=== PATIENT | female | born 1960 | race Caucasian/White ===

== ENCOUNTER 2017-03-10 21:58 | Emergency (ER) | payer MEDICAID ==
[~2017-03-10] VITALS: Ht 160 cm; Wt 61.5 kg
[2017-03-10 22:04] VITALS: Ht 160 cm; Wt 61.5 kg
[2017-03-10] MEDS ORDERED: ALPRAZOLAM 0.25 MG TAB PO ONE (23:30)
--- NOTE | 2017-03-10 23:55 | RADRPT ---
PROCEDURE: CHEST - 1 VIEW CLINICAL INDICATION: 57-year-old female with chest pain and palpitations. TECHNIQUE: A single frontal AP portable view of the chest was performed. The images were reviewed on a PACS workstation. COMPARISON: Chest x-ray June 15, 2016. FINDINGS: The cardiomediastinal silhouette has a normal appearance. There is no evidence for an infiltrate. There is no evidence for congestive heart failure. There is no evidence for pneumothorax. The osseou s structures are intact. IMPRESSION: No evidence for active cardiopulmonary disease. .Tyrone Diggs MD, MD Date Time Electronically viewed and signed by .Tyrone Diggs MD, on 03/10/2017 23:55 .M/
[2017-03-11 00:09] LABS: ADD SCAN DIFF NO
[2017-03-11 00:11] LABS: BASOPHILS % 0.2 % (0.0-2.0); EOSINOPHILS # 0.1 10^3/ul (0.0-0.5); EOSINOPHILS % 2.3 % (0.0-7.0); HEMATOCRIT 38.5 % (37.0-47.0); HEMOGLOBIN 12.8 g/dl (12.0-16.0); LYMPHOCYTES # 2.6 10^3/ul (0.8-2.9); LYMPHOCYTES % 41.8 % (15.0-51.0); MEAN CORPUSCULAR HEMOGLOBIN 30.6 pg (29.0-33.0); MEAN CORPUSCULAR HGB CONC 33.2 g/dl (32.0-37.0); MEAN CORPUSCULAR VOLUME 92.1 fl (82.0-101.0); MEAN PLATELET VOLUME 9.4 fl (7.4-10.4); MONOCYTE # 0.5 10^3/ul (0.3-0.9); MONOCYTES % 7.6 % (0.0-11.0); NEUTROPHILS % 47.9 % (39.0-77.0); PLATELET COUNT 328 10^3/UL (140-415); RED BLOOD COUNT 4.18 10^6/ul (4.20-5.40); WHITE BLOOD COUNT 6.2 10^3/ul (4.8-10.8)
[2017-03-11 00:32] LABS: ALANINE AMINOTRANSFERASE 26 IU/L (13-69); ALBUMIN 4.6 g/dl (3.3-4.9); ALBUMIN/GLOBULIN RATIO 1.27; ALKALINE PHOSPHATASE 68 IU/L (42-121); ANION GAP 10 (8-16); ASPARTATE AMINO TRANSFERASE 25 IU/L (15-46); BILIRUBIN,INDIRECT 0.3 mg/dl (0-1.1); BILIRUBIN,TOTAL 0.3 mg/dl (0.2-1.3); BLOOD UREA NITROGEN 8 mg/dl (7-20); CALCIUM 9.5 mg/dl (8.4-10.2); CARBON DIOXIDE 28 mmol/L (21-31); CHLORIDE 105 mmol/L (97-110); CREATININE 0.64 mg/dl (0.44-1.00); GLUCOSE 106 mg/dl (70-220); MAGNESIUM 2.1 mg/dl (1.7-2.5); POTASSIUM 3.8 mmol/L (3.5-5.1); SODIUM 139 mmol/L (135-144); TOTAL PROTEIN 8.2 g/dl (6.1-8.1)
[2017-03-11 00:42] LABS: TROPONIN-I < 0.012 ng/ml (0.00-0.12)
[2017-03-11] MEDS ORDERED: LORA-441 PO (01:35)
[2017-03-11 02:16] VITALS: BP 116/65; PULSE 67; RESP 20; TEMP 98
--- NOTE | 2017-03-11 19:49 | ERD ---
ER Documentation Chief Complaint Date/Time DATE: 03/11/17 TIME: 19:49 Chief Complaint anxiety/palpitation x 1 day, denies cp HPI This is a 57 year old female who presents to the ED with palpitation for 5 days associated with feelings of anxiety. Pt states that the had 1 or 2 episodes of "hearing her heart pounding" that lasts for 30 minutes for the past 5 days. Onset is spontaneous either at rest or in activity. Palpitations resolve after taking ativan. Pt also takes multivitamins at home aside from ativan. Denies fever, chest pain, shortness of breath. Denies smoking and drinks alcohol occasionally. Denies use of illegal drugs. Denies medical or surgical history. Pt was seen in the ED on 06/2016 with the same symptoms in which cardiac workup was negative. ROS All systems reviewed and are negative except as per history of present illness. Medications Home Meds Active Scripts Lorazepam* (Ativan*) 0.5 Mg Tablet, 0.5 MG PO Q8, #10 TAB Prov:ALYSIA REAL 03/11/17 Allergies Allergies: Coded Allergies: No Known Allergy (Unverified , 03/10/17) PMhx/Soc History of Surgery: No Anesthesia Reaction: No Hx Neurological Disorder: No Hx Respiratory Disorders: No Hx Cardiac Disorders: No Hx Psychiatric Problems: Yes (ANXIETY) Hx Miscellaneous Medical Probl: No Hx Alcohol Use: Yes Hx Substance Use: No Hx Tobacco Use: No Smoking Status: Never smoker Physical Exam Vitals Vital Signs Date Time Temp Pulse Resp B/P Pulse Ox O2 Delivery O2 Flow Rate FiO2 03/11/17 02:16 98.0 67 20 116/65 100 Room Air 03/10/17 22:04 97.9 91 20 157/81 100 Physical Exam Physical Exam CONST: Well-developed, well-nourished, in no acute distress. Nontoxic in appearance. HEENT: Atraumatic. Normal conjunctiva. EOM intact. TM intact. External ear is normal. Clear oropharynx without erythema. No uvular deviation. Moist mucous membranes. Supple neck. No meningismus. No submandibular induration. RESP: Clear to auscultation bilaterally. No wheezing. CARDIO: Regular rate and rhythm, no murmurs. ABD: Soft, non tender, non distended. Normal bowel sounds. No McBurney' s point tenderness. No guarding or rigidity. No peritoneal signs. SKIN: No petechiae or rashes. BACK: No midline or flank tenderness. EXT: No cyanosis or edema. Distal pulses equal and bilateral. NEURO: Awake and alert, appropriate for age. 5/5 strength in all extremities. Normal speech. Steady gait. Result Diagram: 03/10/17 2345 03/10/17 2345 Results 24 hrs Laboratory Tests Test 03/10/17 23:45 White Blood Count 6.210^3/ul Red Blood Count 4.1810^6/ul Hemoglobin 12.8g/dl Hematocrit 38.5% Mean Corpuscular Volume 92.1fl Mean Corpuscular Hemoglobin 30.6pg Mean Corpuscular Hemoglobin Concent 33.2g/dl Red Cell Distribution Width 12.0% Platelet Count 18363^3/UL Mean Platelet Volume 9.4fl Neutrophils % 47.9% Lymphocytes % 41.8% Monocytes % 7.6% Eosinophils % 2.3% Basophils % 0.2% Nucleated Red Blood Cells % 0.0/100WBC Neutrophils # 3.010^3/ul Lymphocytes # 2.610^3/ul Monocytes # 0.510^3/ul Eosinophils # 0.110^3/ul Basophils # 0.010^3/ul Nucleated Red Blood Cells # 0.010^3/ul Sodium Level 139mmol/L Potassium Level 3.8mmol/L Chloride Level 105mmol/L Carbon Dioxide Level 28mmol/L Anion Gap 10 Blood Urea Nitrogen 8mg/dl Creatinine 0.64mg/dl Glucose Level 106mg/dl Calcium Level 9.5mg/dl Magnesium Level 2.1mg/dl Total Bilirubin 0.3mg/dl Direct Bilirubin 0.00mg/dl Indirect Bilirubin 0.3mg/dl Aspartate Amino Transf (AST/SGOT) 25IU/L Alanine Aminotransferase (ALT/SGPT) 26IU/L Alkaline Phosphatase 68IU/L Troponin I < 0.012ng/ml Total Protein 8.2g/dl Albumin 4.6g/dl Globulin 3.60g/dl Albumin/Globulin Ratio 1.27 Current Medications Medications (Trade) Dose Ordered Sig/Natalia Route PRN Reason Start Time Stop Time Status Last Admin Dose Admin Alprazolam (Xanax) 0.25 mg ONCE ONCE PO 03/10/17 23:30 03/10/17 23:31 DC PROCEDURE: CHEST - 1 VIEW CLINICAL INDICATION: 57-year-old female with chest pain and palpitations. TECHNIQUE: A single frontal AP portable view of the chest was performed. The images were reviewed on a PACS workstation. COMPARISON: Chest x-ray June 15, 2016. FINDINGS: The cardiomediastinal silhouette has a normal appearance. There is no evidence for an infiltrate. There is no evidence for congestive heart failure. There is no evidence for pneumothorax. The osseous structures are intact. IMPRESSION: No evidence for active cardiopulmonary disease. .Tyrone Diggs MD, MD Date Time Electronically viewed and signed by .Tyrone Diggs MD, MD on 03/10/2017 23:55 Procedures/MDM EMERGENCY DEPARTMENT COURSE/MEDICAL DECISION MAKING This is a 57 year old female who comes to the emergency room secondary to complaints of palpitations for 5 days associated with feelings of anxiety. Xanax was ordered, upon re-evaluation, pt's anxiety has resolved. CXR was done and was interpreted by a radiologist. Results shows no evidence of active cardiopulmonary disease CBC, CMP, Mg and troponin were ordered. Lab results are unremarkable. EKG read by Dr. Collins Rate/Rhythm: Regular rate and rhythm at a rate of 71 Intervals: Normal Impression: No evidence of ischemia. Given the lab results and diagnostic tests. I believe the episodes of palpitations are not cardiac-related and may be attributed to anxiety. My primary diagnosis is palpitations. Secondary diagnosis anxiety Differential diagnoses considered but not limited to atrial fibrillation, CT, anxiety, atrial flutter, ischemia, cardiac arrhythmias. Pt is hemodynamically stable upon reassessment. There are no new complaints during the ED course The patient was discharged for outpatient management with a prescription for lorazepam. The patient was advised to followup with their PMD in 1-2 days and to return to the Emergency Department if there are any new or worsening symptoms. The patient understood and agreed with the diagnosis, treatment and plan. Patient is stable for discharge at this time. Departure Diagnosis: Primary Impression: Palpitations Additional Impression: Anxiety Condition: Stable Patient Instructions: Your Body's Response to Anxiety, Palpitations Referrals: [facility] Leighann mohr tay hecho un examen mdico de control que le indica que no est en migdalia condicin que requiera tratamiento urgente en el Departamento de Emergencia. Un estudio ms profundo y el tratamiento de munoz condicin pueden esperar sin ningn riesgo hasta que usted sea atendida/o en el consultorio de munoz mdico o migdalia cl joseph. Es responsabilidad suya arreglar migdalia es para el seguimiento del leah. MANEJO DE CONDICIONES NO URGENTES EN EL FUTURO 1) Si usted tiene un mdico de atencin primaria: Usted debera llamar a munoz mdico de atencin primaria antes de venir al departamento de emergencia. Despus de las horas de consultorio, munoz doctor o munoz asociado/a est disponible por telfono. El mdico o enfermero de ej en el servicio telefnico puede asesorarle por clementine medio para atender el problema, o leah contrario se puede programar migdalia es. 2) Si usted no tiene un mdico de atencin primaria: Llame al mdico o clnica de referencia que aparece abajo blanca las horas de consultorio para hacer migdalia es para que le vean. CLINICAS: [facility] [phone] [facility] [phone] [facility] [phone] [facility]. [facility] [phone] [facility]. [place] [id number] [phone] [facility]. [phone] [address] [facility]. [facility] () Usted se tay hecho un examen mdico de control que le indica que no est en migdalia condicin que requiera tratamiento urgente en el Departamento de Emergencia. Un estudio ms profundo y el tratamiento de munoz condicin pueden esperar sin ningn riesgo hasta que usted sea atendida/o en el consultorio de munoz mdico o migdalia cl joseph. Es responsabilidad suya arreglar migdalia es para el seguimiento del leah. MANEJO DE CONDICIONES NO URGENTES EN EL FUTURO 1) Si usted tiene un mdico de atencin primaria: Usted debera llamar a munoz mdico de atencin primaria antes de venir al departamento de emergencia. Despus de las horas de consultorio, munoz doctor o munoz asociado/a est disponible por telfono. El mdico o enfermero de ej en el servicio telefnico puede asesorarle por clementine medio para atender el problema, o leah contrario se puede programar migdalia es. 2) Si usted no tiene un mdico de atencin primaria: Llame al mdico o condado institucions de referencia que aparece abajo blanca las horas de consultorio para hacer migdalia es para que le vean. SI USTED NO PUEDE PAGAR PARA KORIN UN MEDICO puede ir a: [facility] [id number] [place] [address] [facility] [address] [place] [address] [facility] [address] [place] [address] [facility] [facility] [address] [place], [place] [id number] Additional Instructions: Llame a munoz mdico de atencin primaria maana para hacer migdalia es blanca los pr ximos evans 1-2. Volver al Departamento de la emergencia inmediatamente si tiene cualquier s ntoma nuevo o que empeora. Essig todos los medicamentos beth lo indique. ALYSIA REAL March 11, 2017 19:49
== END 2017-03-11 02:17 | disposition home or self-care (01) ==
LOC: FTE 21:58
DX: R00.2 Palpitations (principal)
CPT/HCPCS: 36415; 71010; 80053; 83735; 84484; 85025; 93005

== ENCOUNTER 2017-10-02 20:42 | Emergency (ER) | payer MEDICAID ==
[~2017-10-02] VITALS: Ht 160 cm; Wt 60.0 kg
[~2017-10-02 20:42] MED LIST: LORA-441 PO
[2017-10-02 20:46] VITALS: Ht 160 cm; Wt 60.0 kg
--- NOTE | 2017-10-02 22:05 | ERD ---
ER Documentation Chief Complaint Chief Complaint palpitations/anxiety x 4 days. denies cp or sob HPI This 57-year-old female presents to emergency department for evaluation of palpations. Palpitations described as intermitted with rest or exercise, pt has seen PMD waiting for 24 hour Holter test pending. Patient denies any shortness of breath, chest pain, dizziness, reports that she has had her lab work done last week including thyroid stimulating test, reports she has normal thyroid function. ROS All systems reviewed and are negative except as per history of present illness. Medications Home Meds Active Scripts Lorazepam* (Ativan*) 0.5 Mg Tablet, 0.5 MG PO Q8, #10 TAB Prov:CHARLY,MARIO 10/02/17 Lorazepam* (Ativan*) 0.5 Mg Tablet, 0.5 MG PO Q8, #10 TAB Prov:ALYSIA REAL 03/11/17 Allergies Allergies: Coded Allergies: No Known Allergy (Unverified , 10/02/17) PMhx/Soc History of Surgery: No Anesthesia Reaction: No Hx Neurological Disorder: No Hx Respiratory Disorders: No Hx Cardiac Disorders: No Hx Psychiatric Problems: Yes (ANXIETY) Hx Miscellaneous Medical Probl: No Hx Alcohol Use: Yes Hx Substance Use: No Hx Tobacco Use: No Smoking Status: Never smoker Physical Exam Vitals Vital Signs Date Time Temp Pulse Resp B/P Pulse Ox O2 Delivery O2 Flow Rate FiO2 10/03/17 00:03 97.8 72 16 110/68 100 Room Air 10/02/17 20:46 97.6 89 20 142/68 98 Vitals stable, triage notes reviewed Physical Exam Const: Well-nourished well hydrated well-appearing no acute distress ENT: Normal External Ears, Nose and Mouth. Resp: Respirations even and unlabored, clear to auscultation bilaterally no rales wheezes or rhonchi Cardio: S1-S2, no S3-S4 regular rate and rhythm, no murmurs Abd: Soft, non tender, non distended. No epigastric tenderness Ext: No cyanosis, or edema Neur: Awake and alert Psych: Normal Mood and Affect his speech is clear, slow, her thought process is precise and easily to follow. Patient does not present as anxious at this time Procedures/MDM EKG read by Dr. Sanon: Rate/Rhythm: Regular rate and rhythm at a rate of 73 bpm Intervals: Normal Impression: No evidence of ischemia or arrhythmia This 57-year-old female presents to emergency department for palpitations, reports history of anxiety, head is being worked up for palpitations by primary care physician, has had lab work, including thyroid-stimulating test, reports normal thyroid function, patient reports she does not drink caffeine, and has a 24 hour Holter monitor scheduled awaiting primary care physician to notify her of testing. Emergency room course includes history and physical exam, patient is well-appearing, well-hydrated, no acute distress, vitals are stable, she had no observed lightheadedness or dizziness with standing or sitting, I have little suspicion for atrial fibrillation, patient receives EKG with ventricular rate of 73 bpm without ectopy or evidence of ischemia, plan to discharge patient home to follow-up with primary care physician, patient will receive 0.5 mg Ativan count of 7 for anxiety symptoms, return to emergency room for chest pain, shortness of breath, continued palpitations, or dizziness. Patient is stable with no new complaints during ER course, clinically there is no current evidence to suggest meningitis, sepsis, new onset atrial fibrillation, acute coronary syndromes, pulmonary embolism or any other emergent condition appearing to require further evaluation or hospitalization. I feel the patient is stable for discharge at this time. I have discussed results, examination findings, the treatment plan with the patient and family present prior to discharge. Indications for emergent reevaluation, side effects of medication were also discussed. All questions were answered. Patient verbalizes understanding and agrees with plan of care. Departure Diagnosis: Primary Impression: Anxiety Additional Impression: Palpitations Condition: Good Patient Instructions: Anxiety Reaction, Palpitations Additional Instructions: Thank you for for coming to [facility] for your care today. Please ask your nurse or provider if you have questions about your care today and do not leave until all your questions have been answered. Please use any medications given as directed and follow-up with your doctor (or the doctor you were referred to) in the next 2-3 days. If you do not have a primary care doctor you may follow up at the [facility] (listed below). You may also use motrin and tylenol as needed for fever and/or pain unless instructed otherwise by your provider or nurse. Indications for more urgent follow-up have been discussed, but you may return to the Emergency Department at ANY time for any worrisome or worsening symptoms. If you have abdominal pain, please know that no test or exam you received is perfect and you should follow up within 8 hours for continued pain. If you had any imaging studies today, such as an X-Ray or CT Scan, these studies will be reviewed later by a radiologist. You will be called if there are important findings that were not identified today, so make sure the contact information you provided at registration is correct. If you received any narcotic pain control medicine today, such as Vicodin, Morphine or Dilaudid, your coordination and judgment may be affected for a number of hours. Please do not drive or operate heavy machinery, and you may want someone to assist you at home. If you were given a prescription for narcotic medication, be aware that it is very addictive- use sparingly and only if necessary. MARIO PARKS Oct 02, 2017 22:05
[2017-10-02] MEDS ORDERED: LORA-441 PO (23:52)
[2017-10-03 00:03] VITALS: BP 110/68; PULSE 72; RESP 16; TEMP 97.8
== END 2017-10-03 00:04 | disposition home or self-care (01) ==
LOC: FTE 20:42
DX: F41.9 Anxiety disorder, unspecified (principal)
CPT/HCPCS: 93005; Z7502